=== PATIENT | male | born 1970 | race African-American/Black ===

== ENCOUNTER 2019-08-23 12:40 | Inpatient (IN) ==
[2019-08-23] MEDS ORDERED: ETOMIDATE 20 MG/10 ML VIAL IV STA (12:43)
[2019-08-23] MEDS ORDERED: ROCURONIUM 100 MG/10 ML VIAL IV ONE ×2 (12:43→12:52)
[2019-08-23] MEDS ORDERED: methylPREDNISolone SOD SUC 125 MG/2 ML VIAL ONE (12:46)
[2019-08-23] MEDS ORDERED: methylPREDNISolone SOD SUC 125 MG/2 ML VIAL IV STA (12:47)
[2019-08-23] MEDS ORDERED: ETOMIDATE 20 MG/10 ML VIAL IV ONE (12:51)
[2019-08-23 13:04] LABS: Allen Test Positive; Pt O2 Delivery Device Ventilator
[2019-08-23 13:05] LABS: ABG Base Excess -9.6 MMOL/L (-2.5-2.5); ABG Oxygen Saturation 99.3 % (95-100); ABG PCO2 66.5 MM HG (35-48); ABG TCO2 19.8 MMOL/L (23-27)
[2019-08-23 13:09] LABS: ABG PH 7.125 (7.35-7.45)
[2019-08-23 13:41] LABS: ABG HCO3 22.8 MMOL/L (20-26); ABG Oxygen Saturation 99.9 % (95-100); ABG PCO2 46.6 MM HG (35-48); ABG PH 7.328 (7.35-7.45); ABG TCO2 21.2 MMOL/L (23-27)
[2019-08-23 13:54] LABS: Basophils # 0.1 10*3/uL (0.0-0.2); Basophils % 0.4 % (0.0-0.8); Eosinophils # 0.5 10*3/uL (0.0-0.87); Eosinophils % 3.5 % (0.00-10.9); Hematocrit 49.7 VOL% (42.0-52.0); Hemoglobin 15.4 GM/DL (14.0-18.0); Immature Granulocytes % 0.5 %; Immature Granulocytes Absolute 0.07 #; Lymphocytes # 7.5 10*3/uL (1.4-4.0); Lymphocytes % 49.3 % (21.2-54.2); Mean Corpuscular Volume 91.9 FL (87-102); Mean Platelet Volume 12.5 FL (9.6-12.0); Monocytes % 11.1 % (1.7-12.7); Neutrophils % 35.2 % (38.7-73.9); Platelet Count 260 T/CUMM (130-400); Red Blood Count 5.41 MC/CUMM (3.8-5.5); Red Cell Distribution Width 13.9 % (9.3-17.3); White Blood Count 15.3 T/CUMM (4-12)
[2019-08-23 14:08] LABS: Alanine Aminotransferase 28 U/L (16-61); Albumin 4.2 G/DL (3.4-5.0); Alkaline Phosphatase 90 U/L (45-117); Aspartate Amino Transferase 24 U/L (0-37); Blood Urea Nitrogen 11 MG/DL (7-18); CKMB % 1.4 %; Calcium 9.4 MG/DL (8.5-10.1); Estimated Glom Filtration Rate 70 ML/MIN; Glucose 154 MG/DL (74-106); Total Protein 8.8 G/DL (6.4-8.3); Troponin I < 0.015 NG/ML (0.00-0.045)
[2019-08-23 14:25] LABS: Barbiturates Screen,Urine Negative (Negative); Benzodiazepines Screen,Urine Negative (Negative); Cannabinoid Screen,Urine Negative (Negative); Opiate Screen,Urine Negative (Negative); Phencyclidine Screen,Urine Negative (Negative)
[2019-08-23 14:30] LABS: Apearance,Urine CLOUDY (Clear); Bilirubin,Urine Negative (Negative); Blood, Urine Moderate mg/dL (Negative); Glucose,Urine (UA) Negative (Negative); Ketones,Urine Negative (Negative); Mucus,Urine Occasional /LPF (Occasional); Nitrite,Urine Negative (Negative); Protein,Urine 100 MG/DL; RBC,Urine 7 /HPF (0-4); Sperm,Urine Few /HPF (Negative); Urine Color Yellow (Yellow); Urine Specific Gravity 1.018 (1.001-1.035); Urine Urobilinogen < 2.0 EU/DL (0.2-1.0)
[2019-08-23] MEDS ORDERED: MORPHINE 4 MG/1 ML VIAL ONE (14:30)
[2019-08-23] MEDS ORDERED: MORPHINE 4 MG/1 ML VIAL IV STA (14:35)
[2019-08-23 15:02] LABS: Eosinophils 1 % (0-10); Lymphocytes 43 % (20-55); Segmented Neutrophils 43 % (50-85); Total Cells Counted 100
[2019-08-23 15:03] LABS: Platelet Estimate Adequate; Reactive Lymphocytes Few
[2019-08-23] MEDS ORDERED: ONDANSETRON 4 MG/2 ML VIAL ONE (15:12)
[2019-08-23] MEDS ORDERED: ONDANSETRON 4 MG/2 ML VIAL IV STA (15:14)
[2019-08-23] MEDS ORDERED: ALBUTEROL 2.5 MG/3 ML NEB RESP TX PRN ×2 (15:31→20:37)
[2019-08-23] MEDS ORDERED: ONDANSETRON 4 MG/2 ML VIAL IV PRN (15:31)
[2019-08-23] MEDS ORDERED: diphenhydrAMINE 50 MG/1 ML VIAL IV STA (15:44)
[2019-08-23] MEDS ORDERED: LORazepam 2 MG/1 ML VIAL IV PRN (15:46)
[2019-08-23] MEDS: SODIUM CHLORIDE 0.9% 1,000 ML IV SCH ×2 (16:00→23:15)
[2019-08-23] MEDS ORDERED: LORazepam 2 MG/1 ML VIAL IV ONE (16:39)
[2019-08-23] MEDS ORDERED: SODIUM CHLORIDE 0.9% 2,000 ML IV ONE (16:40)
[2019-08-23] MEDS ORDERED: hydrALAZINE 20 MG/1 ML VIAL IV PRN (16:43)
[2019-08-23] MEDS ORDERED: METOPROLOL TARTRATE 5 MG/5 ML VIAL IV PRN (16:48)
[2019-08-23] MEDS: FAMOTIDINE 20 MG/2 ML VIAL IV SCH (18:05)
[2019-08-23] MEDS: cefTRIAXone 1,000 MG in SYRINGE 1 EACH IV SCH (18:06)
[2019-08-23] MEDS: INSULIN LISPRO 100 UNIT/ML SUBCUT SCH (21:03)
[2019-08-23] MEDS: methylPREDNISolone SOD SUC 125 MG/2 ML VIAL IV SCH (22:03)
[2019-08-23] MEDS: ENOXAPARIN 40 MG/0.4 ML SYRINGE SUBCUT SCH (22:03)
[2019-08-24] MEDS: diphenhydrAMINE 50 MG/1 ML VIAL IV SCH ×2 (01:39→05:55)
[2019-08-24 03:16] LABS: Basophils % 0.1 % (0.0-0.8); Hematocrit 45.5 VOL% (42.0-52.0); Hemoglobin 14.7 GM/DL (14.0-18.0); Immature Granulocytes % 0.6 %; Immature Granulocytes Absolute 0.12 #; Lymphocytes # 1.3 10*3/uL (1.4-4.0); Lymphocytes % 6.9 % (21.2-54.2); Mean Corpuscular HGB Conc 32.3 GM/DL (32-36); Mean Corpuscular Volume 87.8 FL (87-102); Mean Platelet Volume 12.4 FL (9.6-12.0); Monocytes % 3.2 % (1.7-12.7); Neutrophils % 89.2 % (38.7-73.9); Platelet Count 221 T/CUMM (130-400); Red Blood Count 5.18 MC/CUMM (3.8-5.5); Red Cell Distribution Width 14.4 % (9.3-17.3); White Blood Count 19.1 T/CUMM (4-12)
[2019-08-24 03:48] LABS: Albumin 3.7 G/DL (3.4-5.0); Bilirubin,Total 0.4 MG/DL (0.2-1.0); Osmolality,Calculated 285.1 MOS/KG (273-304); Total Protein 7.8 G/DL (6.4-8.3)
[2019-08-24] MEDS: FAMOTIDINE 20 MG/2 ML VIAL IV SCH (05:55)
[2019-08-24 07:39] LABS: ABG Base Excess -1.4 MMOL/L (-2.5-2.5); ABG HCO3 22.2 MMOL/L (20-26); ABG Oxygen Saturation 96.7 % (95-100); ABG PCO2 34.2 MM HG (35-48); ABG PO2 84.2 MM HG (80-95); ABG TCO2 23.2 MMOL/L (23-27); Allen Test Positive; Pt O2 Delivery Device Ventilator
[2019-08-24] MEDS: INSULIN LISPRO 100 UNIT/ML SUBCUT SCH (07:58)
[2019-08-24] MEDS: methylPREDNISolone SOD SUC 125 MG/2 ML VIAL IV SCH (09:09)
[2019-08-24] MEDS ORDERED: diphenhydrAMINE CAP 25 MG CAPSULE PO SCH (09:30)
[2019-08-24] MEDS: CETIRIZINE 10 MG TABLET PO SCH (10:36)
[2019-08-24] MEDS: SODIUM CHLORIDE 0.9% 1,000 ML IV SCH ×2 (10:36→12:15)
[2019-08-24] MEDS: cefTRIAXone 1,000 MG in SYRINGE 1 EACH IV SCH (17:30)
[2019-08-24] MEDS: ENOXAPARIN 40 MG/0.4 ML SYRINGE SUBCUT SCH (20:46)
[2019-08-24] MEDS: methylPREDNISolone SOD SUC 40 MG/1 ML VIAL IV SCH (20:47)
[2019-08-24] MEDS: FAMOTIDINE 20 MG TABLET PO SCH (20:50)
[2019-08-25 04:59] LABS: Basophils # 0.1 10*3/uL (0.0-0.2); Basophils % 0.2 % (0.0-0.8); Hematocrit 41.8 VOL% (42.0-52.0); Hemoglobin 13.6 GM/DL (14.0-18.0); Immature Granulocytes % 0.9 %; Immature Granulocytes Absolute 0.21 #; Lymphocytes # 1.7 10*3/uL (1.4-4.0); Lymphocytes % 7.6 % (21.2-54.2); Mean Corpuscular HGB Conc 32.5 GM/DL (32-36); Mean Corpuscular Volume 88.6 FL (87-102); Mean Platelet Volume 12.1 FL (9.6-12.0); Monocytes % 4.9 % (1.7-12.7); Neutrophils % 86.4 % (38.7-73.9); Platelet Count 232 T/CUMM (130-400); Red Blood Count 4.72 MC/CUMM (3.8-5.5); Red Cell Distribution Width 14.4 % (9.3-17.3); White Blood Count 22.9 T/CUMM (4-12)
[2019-08-25 05:32] LABS: Bilirubin,Total 0.6 MG/DL (0.2-1.0); Calcium 9.1 MG/DL (8.5-10.1)
[2019-08-25 05:33] LABS: Albumin 3.5 G/DL (3.4-5.0); Total Protein 7.3 G/DL (6.4-8.3)
[2019-08-25 05:57] LABS: Lymphocytes 4 % (20-55); Platelet Estimate Normal; Segmented Neutrophils 91 % (50-85); Total Cells Counted 100
[2019-08-25] MEDS: CETIRIZINE 10 MG TABLET PO SCH (08:42)
[2019-08-25] MEDS: FAMOTIDINE 20 MG TABLET PO SCH (08:42)
[2019-08-25] MEDS: methylPREDNISolone SOD SUC 40 MG/1 ML VIAL IV SCH (08:42)
[2019-08-25 11:42] VITALS: BP 139/86
== END 2019-08-25 12:58 | disposition home or self-care (01) | DRG 208 ==
LOC: N.ED 12:40 → N.EDINP 15:31 → SUATTDRO 15:31 → N.ICU 16:32 → N.5E 08-24 14:41
PROVIDERS: ADMIT Family Medicine; ATTEND Internal Medicine